=== PATIENT | male | born 1955 | race Two or more races ===

== ENCOUNTER 2022-12-14 19:21 | Emergency (ER) | payer OTHER ==
[~2022-12-14] VITALS: Ht 172.7 cm; Wt 61.0 kg
[2022-12-14 19:21] VITALS: BP 127/77; PULSE 72; RESP 18; O2SAT 97
== END 2022-12-14 23:41 | disposition left against medical advice (07) ==
LOC: ER 19:21
DX: S60.456A Superficial foreign body of right little finger, initial encounter (principal); Z53.21 Procedure and treatment not carried out due to patient leaving prior to being seen by health care provider; W22.8XXA Striking against or struck by other objects, initial encounter; Y93.89 Activity, other specified; Y92.89 Other specified places as the place of occurrence of the external cause; Y99.8 Other external cause status